=== PATIENT | male | born 1990 | race Caucasian/White ===

== ENCOUNTER 2023-10-06 09:46 | Outpatient (CLI) | payer OTHER, SELFPAY | END 2023-10-06 09:47 | disposition home or self-care (01) | PROVIDERS: PCP Family Medicine; Visit Provider Family Medicine | DX: I10 Essential (primary) hypertension (principal); E66.01 Morbid (severe) obesity due to excess calories; M79.642 Pain in left hand | CPT/HCPCS: 80048; 80061 ==

== ENCOUNTER 2023-11-20 09:45 | Outpatient (CLI) | payer OTHER, SELFPAY | END 2023-11-20 09:46 | disposition home or self-care (01) | LOC: NFLDREF 11-21 05:58 | PROVIDERS: PCP Family Medicine; Referring Provider Family Medicine; Visit Provider Family Medicine | DX: M79.89 Other specified soft tissue disorders (principal) | CPT/HCPCS: 85379 ==

== ENCOUNTER 2024-02-18 20:00 | Outpatient (CLI) | payer OTHER, SELFPAY ==
--- NOTE | 2024-03-02 09:16 | W.PM.SLEEP ---
Sleep Study Details Details Interpreting Provider: Cristina Date of Sleep Study: 02/18/24 Sleep Study Details: STUDY TYPE: Home unattended ? BMI:? 46.7 ORDERING PROVIDER:? Galindo INDICATION:? Concern about sleep apnea ? SLEEP SUMMARY:? 155.4 minutes monitored RESPIRATORY SUMMARY:? AHI 28.6 Low oxygen 82 1.5% of study oxygen less than 90% Snoring 85.2% PERIODIC LIMB MOVEMENTS OF SLEEP:? Not recorded CARDIAC:? Range 47-88, mean 59.1 IMPRESSION:? Moderate obstructive sleep apnea RECOMMENDATION: Treatment options include weight loss, CPAP, dental appliance and/or airway expansion surgery. CPAP and weight loss are favored.
== END 2024-02-18 20:01 | disposition home or self-care (01) ==
LOC: SLEEP 20:02
PROVIDERS: PCP Family Medicine; Visit Provider Family Medicine
DX: G47.33 Obstructive sleep apnea (adult) (pediatric) (principal)
CPT/HCPCS: 95806

== ENCOUNTER 2024-05-10 13:26 | Emergency (ER) | payer OTHER, SELFPAY ==
[2024-05-10 13:34] VITALS: BP 141/90; PULSE 100; RESP 18; TEMP 37.3; O2SAT 95; BMI 48.8
[2024-05-10 14:39] LABS: PCR FLU A Negative PCR FLU A (Negative); PCR FLU B Negative PCR FLU B (Negative); PCR RSV Negative PCR RSV (Negative); SARS PCR* POSITIVE SARS-CoV-2 (Negative)
--- NOTE | 2024-05-10 16:42 | ED_ITS ---
HPI - Fever General Date Seen: 05/10/24 Chief Complaint: Fever Stated Complaint: Fever 104 for 14-15 hrs, congested Time Seen by Provider: 05/10/24 16:41 Source: patient Mode of arrival: ambulatory Limitations: no limitations History of Present Illness HPI Narrative: Weight patient is a 34-year-old male presenting to emergency department for fevers and congestion. He states the sinus congestion started 3 weeks ago and has been consistent since then. He states he is having rhinorrhea and yellow was discharged. He also states when he is sleeping and surrounding to the back of his throat and is coughing up yellowish mucus. Was not having any fevers until yesterday and now he has had high fever for the past day starting last night. Took Tylenol at 02:00 and 10:30 still was not feeling well. Is not aware of any sick contacts. Denies chest pain, shortness of breath, lightheadedness, dizziness, headache, vision changes, weakness, numbness, abdominal pain, nausea/vomiting. No other concerns noted at this time Related Data Home Medications ?Medication ?Instructions ?Recorded ?Confirmed multivitamin (Daily Multi-Vitamin 1 tab PO QDAY 10/06/23 05/10/24 tablet) Claritin 05/10/24 Previous Rx's ?Medication ?Instructions ?Recorded naproxen 500 mg tablet 500 mg PO BID PRN pain #180 tabs 10/06/23 atenolol 100 mg tablet 100 mg PO QDAY #180 tabs 10/31/23 losartan 100 1 tab PO QDAY #90 tabs 10/31/23 mg-hydrochlorothiazide 25 mg tablet doxazosin 8 mg tablet 8 mg PO QHS #90 tabs 02/08/24 Allergies Allergy/AdvReac Type Severity Reaction Status Date / Time metoprolol AdvReac Severe Chest Pain Verified 02/05/24 10:00 lisinopril AdvReac Intermediate Cough Verified 02/05/24 10:00 Review of Systems Status of ROS Reports: 10 or more systems reviewed and unremarkable except as noted in History and below [facility] Medical History Primary hypertension ?I10 - Essential (primary) hypertension (ICD-10) Nondisp fracture of fifth right metatarsal bone with delayed healing ?S92.354G - Nondisplaced fracture of fifth metatarsal bone, right foot, subsequent encounter for fracture with delayed healing (ICD-10) Morbid obesity with body mass index (BMI) of 40.0 to 44.9 in adult ?E66.01 - Morbid (severe) obesity due to excess calories (ICD-10) ?Z68.41 - Body mass index [BMI] 40.0-44.9, adult (ICD-10) History of snoring (07/16/16) ?Z87.898 - Personal history of other specified conditions (ICD-10) Family History Paternal Grandfather Stroke High blood pressure Maternal Grandfather Heart disease High blood pressure Brother High blood pressure Father Diabetes Social History Narrative: Single, Mario, smoker, social EtOH Smoking Status: Current every day smoker Little interest or pleasure in doing things: several days Feeling down, depressed, or hopeless: not at all Exam Narrative Exam Narrative: Const: Well-nourished, Well-developed, in mild distress Eyes: PERRL, no conjunctival injection, and symmetrical lids HENT: Atraumatic external nose and ears. Moist mucous membranes. Tender bilateral maxillary sinuses Neck: Symmetric, trachea midline, No thyromegaly. CVS: RRR, No murmurs or gallops. Peripheral pulses 2+ and equal in all extremities RESP: Unlabored respiratory effort. Clear to auscultation bilaterally. GI: Nontender/Nondistended, No rebound or guarding. MSK:Extremities w/o deformity, Normal Active ROM Skin: Warm, Dry. No rashes or lesions. Neuro: Normal Muscle tone, No focal neurological deficits. Psych: Awake, Alert, & Oriented x3. Appropriate mood and affect. Const Vital Signs, click to edit/add: Vital Signs - 24 hr 05/10/24 13:34 Temperature 99.2 F Pulse Rate [Pulse Oximeter] 100 Respiratory Rate 18 Blood Pressure [Right Upper Arm] 141/90 H Pulse Oximetry 95 Oxygen Delivery Method Room Air Course Vital Signs Vital signs: Initial Vital Signs Temperature 99.2 F 05/10/24 13:34 Temperature Source Temporal Artery Scan 05/10/24 13:34 Pulse Rate 100 05/10/24 13:34 Respiratory Rate 18 05/10/24 13:34 Blood Pressure 141/90 H 05/10/24 13:34 Blood Pressure Mean 107 H 05/10/24 13:34 Blood Pressure Position Sitting 05/10/24 13:34 Pulse Oximetry 95 05/10/24 13:34 Oxygen Delivery Method Room Air 05/10/24 13:34 Vital Signs Temperature 99.2 F 05/10/24 13:34 Pulse Rate 100 05/10/24 13:34 Respiratory Rate 18 05/10/24 13:34 Blood Pressure 141/90 H 05/10/24 13:34 Pulse Oximetry 95 05/10/24 13:34 Oxygen Delivery Method Room Air 05/10/24 13:34 Temperature 99.2 F 05/10/24 13:34 Pulse Rate 100 05/10/24 13:34 Respiratory Rate 18 05/10/24 13:34 Blood Pressure 141/90 H 05/10/24 13:34 Pulse Oximetry 95 05/10/24 13:34 Oxygen Delivery Method Room Air 05/10/24 13:34 MDM - Fever MDM Narrative Medical decision making narrative: Patient is a 34-year-old male presenting for fever and nasal congestion. Considering she the nasal congestion has been going on for almost 21 days and he is having knee otherwise discharge I will treat this as bacterial sinusitis and start him on antibiotics. He is COVID positive and that is likely why he has the fever. Most likely this COVID positive occurred superimposed bacterial infection and the os I believe it started yesterday when his symptoms of fever started. He was offered Paxlovid but declined at this time. Will be discharged. Do not believe further lab work imaging is necessary as his vital signs are stable and he is otherwise doing well. Lab Data Labs: Lab Results 05/10/24 Range/Units 13:40 SARS-CoV-2 (PCR) POSITIVE SARS-CoV-2 A (Negative) Influenza Type A (PCR) Negative PCR FLU A (Negative) Influenza Type B (PCR) Negative PCR FLU B (Negative) RSV (PCR) Negative PCR RSV (Negative) Discharge Plan Discharge Clinical Impression: COVID Sinusitis Qualifiers: Sinusitis location: maxillary Chronicity: acute Recurrence: non-recurrent Qualified Code(s): J01.00 - Acute maxillary sinusitis, unspecified Patient Disposition: Home, Self-Care Condition: Stable Instructions: Sinusitis (ED), COVID-19 (Coronavirus Disease 2019) (ED) Additional Instructions: Since your sinus symptoms have been going on for over 10 days I will treat with antibiotics. Also believe you developed a new COVID infection yesterday when y our fever started. Recommendation is quarantine for the next 5 days and go 72 hours without a fever. Take Tylenol and ibuprofen for fevers. Return for new or worsening symptoms. Prescriptions: No Action multivitamin [Daily Multi-Vitamin] Tablet 1 tab PO QDAY naproxen 500 mg tablet 500 mg PO BID PRN (Reason: pain) Qty: 180 1RF Claritin losartan-hydrochlorothiazide 100-25 mg tablet 1 tab PO QDAY Qty: 90 3RF atenolol 100 mg tablet 100 mg PO QDAY Qty: 180 3RF doxazosin 8 mg tablet 8 mg PO QHS Qty: 90 1RF Follow Up/Referrals: Conner Medley MD [Primary Care Provider] - Stand Alone Forms: [employer] Info Instructions
[2024-05-10 16:52] VITALS: BP 137/88; PULSE 101; RESP 16; TEMP 38.7; O2SAT 96
== END 2024-05-10 17:06 | disposition home or self-care (01) ==
LOC: ED 16:48
PROVIDERS: Emergency Provider Student in an Organized Health Care Education/Training Program; PCP Family Medicine
DX: U07.1 COVID-19 (principal); J01.00 Acute maxillary sinusitis, unspecified
CPT/HCPCS: 87631; 99282; 99283

== ENCOUNTER 2024-06-16 14:06 | Outpatient (CLI) | payer OTHER, SELFPAY | END 2024-06-16 14:07 | disposition home or self-care (01) | LOC: NFLDREF 14:07 | PROVIDERS: PCP Family Medicine; Visit Provider Registered Nurse | DX: M25.571 Pain in right ankle and joints of right foot (principal) | CPT/HCPCS: 84550 ==

== ENCOUNTER 2024-08-10 14:52 | Emergency (ER) | payer OTHER, SELFPAY ==
--- OUTSIDE RECORDS SUMMARY | 2024-08-10 14:54 | XMS_ITS | Clinical Summary ---
Author Organization [facility] Address [place], [place] [address] Care Team Providers Care Public Health Clinical Nurse Specialist Name Role Phone Conner Medley MD Primary Care Provider + Allergies No known active allergies Medications loratadine (CLARITIN) 10 mg tablet Take 1 tablet by mouth once daily. 0 5 Active fluticasone (50 mcg per actuation) nasal solution (FLONASE)Indicat ions:Chronic nonseasonal allergic rhinitis due to pollen Inhale 2 Sprays into both nostrils once daily. 3 Bottle 3 9 Active losartan-hydroch lorothiazide (HYZAAR) 100-25 mg tablet 2 Active naproxen (NAPROSYN) 500 mg tablet Take 500 mg by mouth. 2 Active indomethacin (INDOCIN) 50 mg capsule Take 50 mg by mouth once daily if needed for Gout Pain. Active doxazosin (CARDURA) 8 mg tablet Take 1 Tablet (8 mg) by mouth. 4 Active carvediloL (Coreg) 12.5 mg tabletIndication s:Essential hypertension Take 1 Tablet (12.5 mg) by mouth two times daily. 180 Tablet 3 4 Active atenoloL (TENORMIN) 100 mg tablet Take 1 Tablet (100 mg) by mouth once daily. 4 07/28/20 24 Discontinu ed(*Med complete/R egimen complete/L evel of care change) Active Problems Problem Noted Date Diagnosed Date Essential hypertension 07/16/2016 Morbid obesity with BMI of 45.0-49.9, adult 12/0 01/2016 History of snoring 07/16/2016 Non-seasonal allergic rhinitis due to pollen 01/2016 Resolved Problems Problem Noted Date Diagnosed Date Resolved Date Smoker 12/19/2014 07/16/2016 Encounters Date Type Department Care Team Description 07/31/2024 9:33 AM [employer] - 07/31/2024 12:49 PM [employer] Emergency [facility] [address] [place] [address] Janel Lovell DO Atypical chest pain (Primary Dx) Discharge Disposition: Home Self Care 07/31/2024 Travel 07/01/2024 4:00 PM [employer] Telemedicine [facility] [address] [place] [address] Lala Poe MD Hypertension 07/01/2024 Travel from Last 3 Months Immunizations Name Administration Dates Next Due MMR 04/11/2004 Td (Age >=7 Years) 04/11/2004 Tdap 09/03/2018 Family History Medical History Relation Name Comments Diabetes type II Father Hypertension Father Sleep apnea Father Relation Name Status Comments Father Alive Mother Alive Social History Tobacco Use Types Packs/Day Years Used Date Smoking Tobacco: Former Cigarettes 0.3 10 0 04/25/2005 - 04/25/2015 Smokeless Tobacco: Never Tobacco Cessation:Counseling Given: Not Answered Comments:0.5 packs per week, noted 02/18/2018 Alcohol Use Standard Drinks/Week Comments Yes 1 (1 standard drink = 0.6 oz pur e alcohol) rare PHQ-2 Answer Date Recorded PHQ-2 Score 0 10/11/2018 Social Connections Answer Date Recorded Frequency of Communication with Friends and Fami ly Not on file 01/08/2022 Financial Resource Strain Answer Date R ecorded Difficulty of Paying Living Expenses Not on file 08/11/2021 Difficulty of Paying Living Expenses Not on file 08/11/2021 Interpersonal Safety Answer Date Record ed Are you being hit, kicked, p ushed or yelled at (see row info)? No 07/31/2024 Interpersonal Safety Abuse 12 - 18 Not on file 07/31/2024 Interpersonal Safety Ambulatory Vulnerability No t on file 07/31/2024 Sex and Gender Information Value Date Recorded Sex Assigned at Not on file Legal Sex Male 5:26 AM [employer] Gender Identity Not on file Sexual Orientation Not on file Obstetrics History Last Filed Vital Signs Vital Sign Reading Time Taken Comments Blood Pressure 174/97 07/31/2024 12:31 PM [employer] Pulse 64 07/31/2024 12:31 PM [employer] Temperature 36.6 C (97.8 F) 07/31/2024 9:41 AM [employer] Respiratory Rate 20 07/31/2024 9:41 AM [employer] Oxygen Saturation 96% 07/31/2024 12:31 PM [employer] Inhaled Oxygen Concentration - - Weight 163.5 kg (360 lb 8 oz) 07/31/2024 9:41 AM [employer] Height 180.3 cm (5' 11) 07/31/2024 9:41 AM [employer] Body Mass Index 50.28 07/31/2024 9:41 AM [employer] Plan of Treatment Health Maintenance Due Date Last Done Comments HIV for age 15-65 2006 Hepatitis C screening for age 18-79 2009 Depression screening for age 12+ 09/03/2019 09/03/2018, 07/22/2017, 07/15/2016 COVID-19 vaccine series ( season) 2024 Influenza for age 9-49 04/11/2024 BMI (ht and wt on same day) for age 18+ 07/01/2025 07/01/2024, 11/02/2019, 10/20/2019, Additional history exists Tetanus booster 09/03/2028 09/03/2018, 04/11/2004 Tdap Completed 09/03/2018 Pneumococcal series for age 6-49 Aged Out No longer eligible based on patient's age to complete this topic Procedures Procedure Name Priority Date/Time Associated Diagnosis Comments TROPONIN T (HS) ONE TIME Timed 07/31/2024 11:59 AM [employer] XR CHEST 2 VIEWS PA AND LATERAL STAT 07/31/2024 11:05 AM [employer] TROPONIN T (HS) ACUTE W/2HR REFLEX STAT 07/31/2024 10:00 AM [employer] BASIC METABOLIC PANEL STAT 07/31/2024 10:00 AM [employer] CBC W PLT NO DIFF STAT 07/31/2024 10: 00 AM [employer] EKG 12 LEAD STAT 07/31/2024 9:38 AM [employer] from Last 3 Months Results * TROPONIN T (HS) ONE TIME (07/31/2024 11:59 AM [employer]) TROPONIN T HS <6 6-15 ng/L ng/L 07/31/2024 12:25 PM [employer] [facility] Blood BLOOD SPECIMEN / Unknown Venipuncture / Unknown 07/31/2024 11:59 AM [employer] 07/31/2024 12:03 PM [employer] Janel Cortezutkelly DO CHEMISTRY Final Result Performing Organization Address City/State/[facility] Co de Phone Number [facility] [address] [place] [address] * XR CHEST 2 VIEWS PA AND LATERAL (07/31/2024 11:05 AM [employer]) Anatomical Region Laterality Modality CHEST, THORAX, Lung, HEART Digit al Radiography 07/31/2024 11:1 0 AM [employer] Impressions 07/31/2024 11:10 AM [employer] 1. No acute cardiopulmonary disease is seen. Dictated by: Perez Joe MD @ 07/31/2024 11:10:33 (Electronically Signed) Narrative 07/31/2024 11:10 AM [employer] For Patients: As a result of the Century Cures Act, medical imaging exams and procedure reports are released immediately into your electronic medical record. You may view this report before your referring provider. If you have questions, please contact your health care provider. INDICATION: Chest pain TECHNIQUE: Chest radiograph 2 views COMPARISON: 09/13/2021 FINDINGS: The sensitivity and specificity of the exam are moderately limited by the patient`s body habitus. Mediastinum: The mediastinum is normal in appearance. The heart silhouette is normal in size and morphology. Lung: Both lungs are unremarkable in appearance with small lung volumes. No sign of pleural effusion seen. No pneumothorax is identified. Bone and Soft tissue: Unremarkable for age. Procedure Note Perez Joe MD - 07/31/2024 For Patients: As a result of the Cures Act, medical imagingexams and procedure reports are released immediately into your electronicmedical record. You may view this report before your referring provider.If you have questions, please contact your health care provider. INDICATION: Chest pain TECHNIQUE: Chest radiograph 2 views COMPARISON: 09/13/2021 FINDINGS: The sensitivity and specificity of the exam are moderatelylimited by the patient`s body habitus. Mediastinum: The mediastinum is normal in appearance. The heart silhouetteis normal in size and morphology. Lung: Both lungs are unremarkable in appearance with small lung volumes.No sign of pleural effusion seen. No pneumothorax is identified. Bone and Soft tissue: Unremarkable for age. IMPRESSION: 1. No acute cardiopulmonary disease is seen. Dictated by: Perez Joe MD @ 07/31/2024 11:10:33 (Electronically Signed) Janel Champagne [facility] DO GENERAL IMAGI NG Final Result * TROPONIN T (HS) ACUTE W/2HR REFLEX (07/31/2024 10:00 AM [employer]) TROPONIN T HS <6 6-15 ng/L ng/L 07/31/2024 10:[address] [facility] Blood BLOOD SPECIMEN / Unknown Venipuncture / Unknown 07/31/2024 10:00 AM [employer] 07/31/2024 10:06 AM [facility] - 07/31/2024 10:28 AM [employer] hs-cTnT (Elecsys Troponin T Gen 5) concentration (s) above the sex-specific 99th percentile (16 ng/L or greater for males or 11 ng/L or greater for females) are indicative of myocardial injury. If initial hs-cTnT <=100 ng/L at presentation, a 0h/2h ABSOLUTE (ng/L) delta change (rising or falling) of >=10 ng/L suggests a significant change, whereas a 0h/2h delta change <=3 ng/L suggests no significant change. If initial hs-cTnT >100 ng/L at presentation, a 0h/2h/ RELATIVE (percent, %) delta change of 20% is suggested to distinguish patients with acute vs. chronic myocardial injury. There are multiple etiologies that can cause hs-cTnT increases above the 99th percentile (myocardial injury) other than acute myocardial infarction. Clinical context and careful clinical evaluation are critical for diagnosis and risk-stratification. The diagnosis of acute myocardial infarction requires a rising and/or falling pattern in hs-cTnT concentrations with at least one value above the sex-specific 99th percentile PLUS at least one of the following clinical criteria: ischemic symptoms, new or presumed new significant ST-T wave changes or new LBBB, development of pathological Q waves, imaging evidence of new loss of viable myocardium or new regional wall motion abnormality, or identification of intracoronary atherothrombosis or an acute angiographic culprit on coronary angiography. In appropriate low-risk patients with a non-ischemic electrocardiogram without active chest pain with a symptom onset >3-hours without recurrence, a single initial hs-cTnT<6 ng/L identifies patient with a very low risk in emergency department patient population. Janel Meza DO CHEMISTRY Final Result [facility] [address] [place] [id number] * (ABNORMAL) CBC W PLT NO DIFF (07/31/2024 10:00 AM [employer]) WHITE BLOOD COUNT 6.9 4.5 - 11.0 thou/cu mm 07/31/2024 10:10 AM [employer] [facility] RED BLOOD COUNT 4.73 4.30 - 5.90 mil/cu mm 07/31/2024 10:[address] [facility] HEMOGLOBIN 13.3(L) 13.5 - 17.5 g/dL 07/31/2024 10:10 AM [employer] [facility] HEMATOCRIT 41.4 37.0 - 53.0 % 07/31/2024 10:[address] [facility] MCV 88 80 - 100 fL 07/31/2024 10:[address] [facility] MCH 28.1 26.0 - 34.0 pg 07/31/2024 10:[address] [facility] MCHC 32.1 32.0 - 36.0 g/dL 07/31/2024 10:[address] [facility] RDW 13.9 11.5 - 15.5 % 07/31/2024 10:[address] [facility] PLATELET COUNT 261 140 - 440 thou/cu mm 07/31/2024 10:[address] [facility] MPV 9.5 6.5 - 11.0 fL 07/31/2024 10:[address] [facility] Blood BLOOD SPECIMEN / Unknown Venipuncture / Unknown 07/31/2024 10:00 AM [facility] 07/31/2024 10:06 AM [facility] Janel Cortezutt DO HEMATOLOGY Final Result [facility] [address] [place] [address] * (ABNORMAL) BASIC METABOLIC PANEL (07/31/2024 10:00 AM [facility]) SODIUM 143 136 - 145 mmol/L 07/31/2024 10:[address] [facility] POTASSIUM 3.9 3.5 - 5.1 mmol/L 07/31/2024 10:[address] [facility] CHLORIDE 105 98 - 107 mmol/L 07/31/2024 10:[address] [facility] CO2,TOTAL 30(H) 22 - 29 mmol/L 07/31/2024 10:[address] [facility] ANION GAP 8 5 - 18 07/31/2024 10:[address] [facility] GLUCOSE 110(H) 70 - 99 mg/dL 07/31/2024 10:[address] [facility] CALCIUM 9.6 8.8 - 10.4 mg/dL 07/31/2024 10:[address] [facility] Comment: Reference ranges for this test were updated on 06/15/2024 to reflect our healthy population more accurately. Reference range changes are not retroactively applied to results, but previous results using the same methodology can be interpreted in the context of the new reference range. BUN 9 6 - 20 mg/dL 07/31/2024 10:[address] [facility] CREATININE 0.85 0.70 - 1.20 mg/dL 07/31/2024 10:[address] [facility] BUN/CREAT RATIO 11 10 - 20 4 10:[address] [facility] eGFR >90 >90 mL/min/1. 73m2 07/31/2024 10:[address] [facility] Comment:As of 2021, eG FR is calculated by the CKD-EPI creatinine equation without race adjustment. eGFR can be influenced by muscle mass, exercise, and diet. The reported eGFR is an estimation only and is only applicable if the renal function is stable. Blood BLOOD SPECIMEN / Unknown Venipuncture / Unknown 07/31/2024 10:00 AM [facility] [employer] 07/31/2024 10:06 AM [employer] Janel Meza DO CHEMISTRY Final Result Performing Organization Address City/State/[facility] Co de Phone Number [facility] [address] [place] [address] * EKG 12 LEAD (07/31/2024 9:38 AM [employer]) Interpretation Normal sinus rhythm Normal ECG When compared with ECG of 13-Sep-2021 00:12, No significant change was found Baseline artifact BEYOND NOW Ventricular Rate 62 BPM BEYOND NOW Atrial Rate 62 BPM BEYOND NOW P-R Interval 140 ms BEYOND NOW QRS Duration 102 ms BEYOND NOW QT 408 ms BEYOND NOW QTc 414 ms BEYOND NOW P [place] 34 degrees BEYOND NOW R [place] -3 degrees BEYOND NOW T [place] 2 degrees BEYOND NOW 07/31/2024 9:38 AM [employer] [employer] 07/31/2024 2:10 PM [employer] [facility] Ed Triage EKG ORD Final Result BEYOND NOW [place], [place] from Last 3 Months Insurance [employer] [facility] [place] [place] [address] ESIS * Guarantor: DOROTHY DUNLAP Account Type Relation to Patient Date of Phone Billing Address Personal/Family [phone] [address] Care Teams Public Health Clinical Nurse Specialist Relationship Specialty Start Date End Date Conner Medley MD [address] [place] [address] PCP - General Family Practice 09/13/21
[2024-08-10 15:09] VITALS: BP 180/103; PULSE 70; RESP 18; TEMP 37; O2SAT 95; BMI 50.2
--- NOTE | 2024-08-10 15:28 | ED.WOUNDLAC ---
HPI - Wound/Laceration General Chief Complaint: Laceration/Wound Stated Complaint: ripped tip of middle finger rt hand Time Seen by Provider: 08/10/24 15:17 History of Present Illness HPI narrative: This 34-year-old male comes in with an injury to tip of his right middle finger. He was using a drill to drive a screw into something in the screw penetrated to the distal portion of his finger. There is no remaining foreign object there any does have AE 1 cm laceration that does involve a bit of injury to the distal portion of the fingernail. His tetanus was last updated 5 years ago. Related Data Home Medications ?Medication ?Instructions ?Recorded ?Confirmed multivitamin (Daily Multi-Vitamin 1 tab PO QDAY 10/06/23 06/16/24 tablet) Claritin 05/10/24 06/16/24 carvedilol 12.5 mg tablet 12.5 mg PO BID 08/10/24 08/10/24 Previous Rx's ?Medication ?Instructions ?Recorded naproxen 500 mg tablet 500 mg PO BID PRN pain #180 tabs 10/06/23 losartan 100 1 tab PO QDAY #90 tabs 10/31/23 mg-hydrochlorothiazide 25 mg tablet doxazosin 8 mg tablet 8 mg PO QHS #90 tabs 02/08/24 indomethacin 50 mg capsule 50 mg PO TID PRN pain #30 caps 06/23/24 Allergies Allergy/AdvReac Type Severity Reaction Status Date / Time metoprolol AdvReac Severe Chest Pain Verified 06/30/24 11:20 lisinopril AdvReac Intermediate Cough Verified 06/30/24 11:20 Review of Systems Status of ROS: Reports: 10 or more systems reviewed and unremarkable except as noted in History and below Narrative: Constitutional: No fevers, no weight gain or loss. Eyes: No discharge. No vision changes. HENT: No congestion, no sore throat, no ear pain. Cardiovascular: No chest pain, no palpitations. Respiratory: No shortness of breath, no wheezes, no cough. Gastrointestinal: No abdominal pain, no vomiting, no diarrhea. Genitourinary: No dysuria, no hematuria. Musculoskeletal: Normal range of motion. Right middle Skin: No rashes, no pruritis. Neurological: No dizziness, weakness, sensory change, speech change. Endo/Heme/Allergies: No bruising or bleeding. No polydipsia. Pysch: no suicidality, no anxiety, no insomnia. All other systems reviewed and are negative. [facility] Medical History Primary hypertension ?I10 - Essential (primary) hypertension (ICD-10) Nondisp fracture of fifth right metatarsal bone with delayed healing ?S92.354G - Nondisplaced fracture of fifth metatarsal bone, right foot, subsequent encounter for fracture with delayed healing (ICD-10) Morbid obesity with body mass index (BMI) of 40.0 to 44.9 in adult ?E66.01 - Morbid (severe) obesity due to excess calories (ICD-10) ?Z68.41 - Body mass index [BMI] 40.0-44.9, adult (ICD-10) History of snoring (07/16/16) ?Z87.898 - Personal history of other specified conditions (ICD-10) Family History Paternal Grandfather Stroke High blood pressure Maternal Grandfather Heart disease High blood pressure Brother High blood pressure Father Diabetes Social History (Updated 06/16/24 @ 14:34 by Diana Allison CNP) Narrative: , smoker, social EtOH Smoking Status: Former smoker Do you use any of these nicotine containing products: None Second hand tobacco smoke exposure: No How often do you have a drink containing alcohol: never AUDIT-C Alcohol total score: 0 Non-prescribed substance use: denies use service: No Exam Narrative: Exam Narrative: Constitutional: Well-developed, well-nourished, no acute distress. HEENT: Normocephalic, atraumatic. Neck: Normal range of motion. Nontender. Supple. Heart: Intact distal pulses. Lungs: No chest discomfort. No wheezes, rhonchi, or rales. Abdomen: Nontender. Back: Normal range of motion. Extremities: Normal range of motion. The right middle finger has a irregular laceration about 1 cm in length involving the very distal portion of the fingernail and across the pad of tip of his finger. Skin: Intact. No rash. Warm. No erythema or pallor. Neurologic: No altered sensation. No weakness. Alert and oriented. Psychiatric: No suicidality. No anxiety or depression. No insomnia. Nursing notes and vitals signs are reviewed. Const: Vital Signs, click to edit/add: Vital Signs - 24 hr 08/10/24 15:09 Temperature 98.6 F Pulse Rate [Pulse Oximeter] 70 Respiratory Rate 18 Blood Pressure [Le ft Upper Arm] 180/103 H Pulse Oximetry 95 Oxygen Delivery Me thod Room Air Course Vital Signs Vital signs: Initial Vital Signs Temperature 98.6 F 08/10/24 15:09 Temperature Source Temporal Artery Scan 08/10/24 15:09 Pulse Rate 70 08/10/24 15:09 Respiratory Rate 18 08/10/24 15:09 Blood Pressure 180/103 H 08/10/24 15:09 Blood Pressure Mean 128 H 08/10/24 15:09 Blood Pressure Position Sitting 08/10/24 15:09 Pulse Oximetry 95 08/10/24 15:09 Oxygen Delivery Method Room Air 08/10/24 15:09 Vital Signs Temperature 98.6 F 08/10/24 15:09 Pulse Rate 70 08/10/24 15:09 Respiratory Rate 18 08/10/24 15:09 Blood Pressure 180/103 H 08/10/24 15:09 Pulse Oximetry 95 08/10/24 15:09 Oxygen Delivery Method Room Air 08/10/24 15:09 Temperature 98.6 F 08/10/24 15:09 Pulse Rate 70 08/10/24 15:09 Respiratory Rate 18 08/10/24 15:09 Blood Pressure 180/103 H 08/10/24 15:09 Pulse Oximetry 95 08/10/24 15:09 Oxygen Delivery Method Room Air 08/10/24 15:09 MDM - Wound/Laceration MDM Narrative Medical decision making narrative: This patient comes in with injury to his right middle finger as described above. Skin edges are nicely approximated and there is no active bleeding. Wound was cleansed with water and I recommended Dermabond repair. This was applied with excellent results. Instructions regarding wound care were given. A Band-Aid was applied over the repaired wound. Discharge Plan Discharge Clinical Impression: Laceration Patient Disposition: Home, Self-Care Condition: Stable Additional Instructions: Keep wound clean and dry. Use [id number] medicines as needed and directed. Follow up with MD return if worsening. Prescriptions: No Action multivitamin [Daily Multi-Vitamin] Tablet 1 tab PO QDAY naproxen 500 mg tablet 500 mg PO BID PRN (Reason: pain) Qty: 180 1RF Claritin carvedilol 12.5 mg tablet 12.5 mg PO BID losartan-hydrochlorothiazide 100-25 mg tablet 1 tab PO QDAY Qty: 90 3RF doxazosin 8 mg tablet 8 mg PO QHS Qty: 90 1RF indomethacin 50 mg capsule 50 mg PO TID PRN (Reason: pain) Qty: 30 0RF Rx Instructions: administer with food or milk Follow Up/Referrals: Conner Medley MD [Primary Care Provider] - [facility]one [facility] Info [facility]
--- OUTSIDE RECORDS SUMMARY | 2024-08-10 15:33 | XMS_ITS | Clinical Summary ---
Author Organization [facility] Address [place], [place] [address] Care Team Providers Care Editor Department Name Role Phone Conner Medley MD Primary [...] Department Care Team Description 07/31/2024 9:33 AM MEDICAL CARE EVALUATION SPECIALIST - 07/31/2024 12:49 PM MEDICAL CARE EVALUATION SPECIALIST Emergency [facility] [address] [place] [address] Janel Lovell DO Atypical chest pain (Primary Dx) Discharge Disposition: Home Self Care 07/31/2024 Travel 07/01/2024 4:00 PM MEDICAL CARE EVALUATION SPECIALIST Telemedicine [facility] [address] [place] [address] Lala Poe MD Hypertension 07/01/2024 Travel from [...] on file Legal Sex Male 5:26 AM MEDICAL CARE EVALUATION SPECIALIST Gender Identity Not on file Sexual Orientation Not on file Obstetrics History Last Filed Vital Signs Vital Sign Reading Time Taken Comments Blood Pressure 174/97 07/31/2024 12:31 PM MEDICAL CARE EVALUATION SPECIALIST Pulse 64 07/31/2024 12:31 PM MEDICAL CARE EVALUATION SPECIALIST Temperature 36.6 C (97.8 F) 07/31/2024 9:41 AM MEDICAL CARE EVALUATION SPECIALIST Respiratory Rate 20 07/31/2024 9:41 AM MEDICAL CARE EVALUATION SPECIALIST Oxygen Saturation 96% 07/31/2024 12:31 PM MEDICAL CARE EVALUATION SPECIALIST Inhaled Oxygen Concentration - - Weight 163.5 kg (360 lb 8 oz) 07/31/2024 9:41 AM MEDICAL CARE EVALUATION SPECIALIST Height 180.3 cm (5' 11) 07/31/2024 9:41 AM MEDICAL CARE EVALUATION SPECIALIST Body Mass Index 50.28 07/31/2024 9:41 AM MEDICAL CARE EVALUATION SPECIALIST Plan of Treatment Health Maintenance Due Date [...] (HS) ONE TIME Timed 07/31/2024 11:59 AM MEDICAL CARE EVALUATION SPECIALIST XR CHEST 2 VIEWS PA AND LATERAL STAT 07/31/2024 11:05 AM MEDICAL CARE EVALUATION SPECIALIST TROPONIN T (HS) ACUTE W/2HR REFLEX STAT 07/31/2024 10:00 AM MEDICAL CARE EVALUATION SPECIALIST BASIC METABOLIC PANEL STAT 07/31/2024 10:00 AM MEDICAL CARE EVALUATION SPECIALIST CBC W PLT NO DIFF STAT 07/31/2024 10: 00 AM MEDICAL CARE EVALUATION SPECIALIST EKG 12 LEAD STAT 07/31/2024 9:38 AM MEDICAL CARE EVALUATION SPECIALIST from Last 3 Months Results * TROPONIN T (HS) ONE TIME (07/31/2024 11:59 AM MEDICAL CARE EVALUATION SPECIALIST) TROPONIN T HS <6 6-15 ng/L ng/L 07/31/2024 12:25 PM MEDICAL CARE EVALUATION SPECIALIST [facility] Blood BLOOD SPECIMEN / Unknown Venipuncture / Unknown 07/31/2024 11:59 AM MEDICAL CARE EVALUATION SPECIALIST 07/31/2024 12:03 PM MEDICAL CARE EVALUATION SPECIALIST Janel Cortezutkelly DO CHEMISTRY Final Result Performing Organization Address City/State/[facility] Co de Phone Number [facility] [address] [place] [address] * XR CHEST 2 VIEWS PA AND LATERAL (07/31/2024 11:05 AM MEDICAL CARE EVALUATION SPECIALIST) Anatomical Region Laterality Modality CHEST, THORAX, Lung, HEART Digit al Radiography 07/31/2024 11:1 0 AM MEDICAL CARE EVALUATION SPECIALIST Impressions 07/31/2024 11:10 AM MEDICAL CARE EVALUATION SPECIALIST 1. No acute cardiopulmonary disease is seen. Dictated by: Perez Joe MD @ 07/31/2024 11:10:33 (Electronically Signed) Narrative 07/31/2024 11:10 AM MEDICAL CARE EVALUATION SPECIALIST For Patients: As a result of the [...] @ 07/31/2024 11:10:33 (Electronically Signed) Janel Champagne [facility] Plutt DO GENERAL IMAGI NG Final Result * TROPONIN T (HS) ACUTE W/2HR REFLEX (07/31/2024 10:00 AM MEDICAL CARE EVALUATION SPECIALIST) TROPONIN T HS <6 6-15 ng/L ng/L 07/31/2024 10:[address] [facility] Blood BLOOD SPECIMEN / Unknown Venipuncture / Unknown 07/31/2024 10:00 AM MEDICAL CARE EVALUATION SPECIALIST 07/31/2024 10:06 AM [facility] - 07/31/2024 10:28 AM MEDICAL CARE EVALUATION SPECIALIST hs-cTnT (Elecsys Troponin T Gen 5) concentration [...] Janel Meza DO CHEMISTRY Final Result [facility] [address] [place] [id number] * (ABNORMAL) CBC W PLT NO DIFF (07/31/2024 10:00 AM MEDICAL CARE EVALUATION SPECIALIST) WHITE BLOOD COUNT 6.9 4.5 - 11.0 thou/cu mm 07/31/2024 10:10 AM MEDICAL CARE EVALUATION SPECIALIST [facility] RED BLOOD COUNT 4.73 4.30 - 5.90 mil/cu mm 07/31/2024 10:[address] [facility] HEMOGLOBIN 13.3(L) 13.5 - 17.5 g/dL 07/31/2024 10:10 AM MEDICAL CARE EVALUATION SPECIALIST [facility] HEMATOCRIT 41.4 37.0 - 53.0 % 07/31/2024 10:[address] [facility] MCV 88 80 - 100 fL 07/31/2024 10:[address] [facility] MCH 28.1 26.0 - 34.0 pg 07/31/2024 10:[address] [facility] MCHC 32.1 32.0 - 36.0 g/dL 07/31/2024 10:[address] [facility] RDW 13.9 11.5 - 15.5 % 07/31/2024 10:[address] [facility] PLATELET COUNT 261 140 - 440 thou/cu mm 07/31/2024 10:[address] [facility] MPV 9.5 6.5 - 11.0 fL 07/31/2024 10:[address] [facility] Blood BLOOD SPECIMEN / Unknown Venipuncture / Unknown 07/31/2024 10:00 AM [facility] 07/31/2024 10:06 AM [facility] Janel Cortezutt DO HEMATOLOGY Final Result [facility] [address] [place] [address] * (ABNORMAL) BASIC METABOLIC PANEL (07/31/2024 10:00 AM [facility]) SODIUM 143 136 - 145 mmol/L 07/31/2024 10:[address] [facility] POTASSIUM 3.9 3.5 - 5.1 mmol/L 07/31/2024 10:[address] [facility] CHLORIDE 105 98 - 107 mmol/L 07/31/2024 10:[address] [facility] CO2,TOTAL 30(H) 22 - 29 mmol/L 07/31/2024 10:[address] [facility] ANION GAP 8 5 - 18 07/31/2024 10:[address] [facility] GLUCOSE 110(H) 70 - 99 mg/dL 07/31/2024 10:[address] [facility] CALCIUM 9.6 8.8 - 10.4 mg/dL 07/31/2024 10:[address] [facility] Comment: Reference ranges for this test were updated on 06/15/2024 to reflect our healthy population more accurately. Reference range changes are not retroactively applied to results, but previous results using the same methodology can be interpreted in the context of the new reference range. BUN 9 6 - 20 mg/dL 07/31/2024 10:[address] [facility] CREATININE 0.85 0.70 - 1.20 mg/dL 07/31/2024 10:[address] [facility] BUN/CREAT RATIO 11 10 - 20 4 10:[address] [facility] eGFR >90 >90 mL/min/1. 73m2 07/31/2024 10:[address] [facility] Comment:As of 2021, eG FR is calculated by the CKD-EPI creatinine equation without race adjustment. eGFR can be influenced by muscle mass, exercise, and diet. The reported eGFR is an estimation only and is only applicable if the renal function is stable. Blood BLOOD SPECIMEN / Unknown Venipuncture / Unknown 07/31/2024 10:00 AM MEDICAL CARE EVALUATION SPECIALIST 07/31/2024 10:06 AM MEDICAL CARE EVALUATION SPECIALIST Janel Meza DO CHEMISTRY Final Result Performing Organization Address City/State/[facility] Co de Phone Number [facility] [address] [place] [address] * EKG 12 LEAD (07/31/2024 9:38 AM MEDICAL CARE EVALUATION SPECIALIST) Interpretation Normal sinus rhythm Normal ECG When compared with ECG of 13-Sep-2021 00:12, No significant change was found Baseline artifact BEYOND NOW Ventricular Rate 62 BPM BEYOND NOW Atrial Rate 62 BPM BEYOND NOW P-R Interval 140 ms BEYOND NOW QRS Duration 102 ms BEYOND NOW QT 408 ms BEYOND NOW QTc 414 ms BEYOND NOW P [place] 34 degrees BEYOND NOW R [place] -3 degrees BEYOND NOW T [place] 2 degrees BEYOND NOW 07/31/2024 9:38 AM MEDICAL CARE EVALUATION SPECIALIST 07/31/2024 2:10 PM MEDICAL CARE EVALUATION SPECIALIST [facility] Ed Triage EKG ORD Final Result BEYOND NOW [place], [place] from Last 3 Months Insurance [employer] [facility] [place] [address] ESIS * Guarantor: DOROTHY DUNLAP Account Type Relation to Patient Date of Phone Billing Address Personal/Family [phone] [address] Care Teams Editor Department Relationship Specialty Start Date End Date Conner Medley MD [address] [place] [address] PCP - General Family Practice 09/13/21
== END 2024-08-10 15:37 | disposition home or self-care (01) ==
PROVIDERS: Emergency Provider Emergency Medicine Emergency Medical Services; PCP Family Medicine
DX: S61.212A Laceration without foreign body of right middle finger without damage to nail, initial encounter (principal); W27.0XXA Contact with workbench tool, initial encounter
CPT/HCPCS: 12001; 99282; 99284

== ENCOUNTER 2024-10-04 15:33 | Outpatient (CLI) | payer OTHER, SELFPAY | END 2024-10-04 15:34 | disposition home or self-care (01) | PROVIDERS: PCP Registered Nurse; Visit Provider Registered Nurse | DX: I10 Essential (primary) hypertension (principal); M10.9 Gout, unspecified | CPT/HCPCS: 80053; 84550 ==

== ENCOUNTER 2025-07-04 15:54 | Outpatient (CLI) | payer OTHER, SELFPAY | END 2025-07-04 15:55 | disposition home or self-care (01) | LOC: KYNREF 15:54 | PROVIDERS: PCP Family Medicine; Visit Provider Nurse Practitioner Family | DX: M1A.0720 Idiopathic chronic gout, left ankle and foot, without tophus (tophi) (principal) | CPT/HCPCS: 84550 ==